=== PATIENT | female | born 1995 | race Two or more races ===

== ENCOUNTER 2018-09-27 13:59 | Emergency (ER) | payer OTHER ==
[~2018-09-27] VITALS: Ht 162.6 cm; Wt 69.9 kg
[2018-09-27 14:57] LABS: Basophils # (auto) 0.1 uL; Eosinophils # (auto) 0 uL; Eosinophils % (auto) 0.3 % (0.0-7.0); Hematocrit 42.4 % (36.0-46.0); Hemoglobin 14.6 g/dL (12.2-16.2); Lymphocytes # (auto) 1.3 uL; Mean Corpuscular Hemoglobin 30.2 pg (28.0-32.0); Mean Corpuscular Hgb Conc. 34.5 g/dL (32.0-36.0); Mean Corpuscular Volume 87.6 fL (80.0-100.0); Monocytes # (auto) 0.6 uL; Neutrophils # (auto) 7.5 uL; Neutrophils % (auto) 78.7 % (37.0-80.0); Nucleated Red Blood Cells % 0.1 %; Platelet Count (auto) 203 10^3/uL (140-450); Red Blood Cells 4.84 10^6/uL (4.0-5.20); Red Cell Distribution Width 13.1 % (11.8-14.3); White Blood Cell 9.6 10^3/uL (4.4-10.8)
[2018-09-27 15:37] LABS: Urine Bacteria NONE SEEN /hpf (None Seen); Urine Blood Negative /uL (Negative); Urine Mucus FEW (None Seen); Urine Specific Gravity 1.014 (1.001-1.035); Urine WBC 13 /hpf (0 - 5)
[2018-09-27] MEDS ORDERED: NITROFURANTOIN (MONO) 100 mg CAP PO ONE (16:00)
[2018-09-27] MEDS ORDERED: FOLIC ACID 1 MG TAB PO ONE (16:15)
[2018-09-27 16:17] VITALS: BP 105/70
== END 2018-09-27 16:15 | disposition home or self-care (01) ==
LOC: ER 14:04
DX: N39.0 Urinary tract infection, site not specified (principal)
CPT/HCPCS: 36415; 81001; 84702; 85025